=== PATIENT | female | born 1990 | race African-American/Black ===

== ENCOUNTER → 2023-01-02 | Outpatient (CLI) | payer OTHER | LOC: M WUC 11:38 | PROVIDERS: ATTEND Student in an Organized Health Care Education/Training Program | DX: M54.50 Low back pain, unspecified (principal) ==

== ENCOUNTER 2023-01-08 01:09 | Emergency (ER) | payer OTHER, SELFPAY ==
[~2023-01-08] VITALS: Ht 160 cm; Wt 99.2 kg
[2023-01-08 01:09] VITALS: BP 124/62
[2023-01-08] MEDS ORDERED: SERT50TA29 (01:17)
[2023-01-08] MEDS ORDERED: TRAZ-252 (01:17)
== END 2023-01-08 05:08 | disposition left against medical advice (07) ==
LOC: M ED 01:09
DX: R07.9 Chest pain, unspecified (principal); Z53.21 Procedure and treatment not carried out due to patient leaving prior to being seen by health care provider

== ENCOUNTER 2023-01-09 10:14 | Emergency (ER) | payer OTHER, SELFPAY ==
[~2023-01-09] VITALS: Ht 160 cm; Wt 97.7 kg
[~2023-01-09 10:14] MED LIST: SERT50TA29; TRAZ-252
[2023-01-09 10:15] VITALS: BP 118/65
[2023-01-09] MEDS ORDERED: ACETAMINOPHEN 325 MG TAB PO ONE (11:05)
[2023-01-09] MEDS ORDERED: ASPIRIN 81MG CHEW TABLET PO ONE (11:05)
[2023-01-09 11:22] LABS: BASO # 0.1 10^3/uL (0.0-0.2); BASO % 0.8 % (0.0-1.0); EOS # 0.3 10^3/uL (0.0-0.5); EOS % 2.9 % (0.0-3.0); HEMATOCRIT 39.7 % (36.0-47.0); LYMPH # 3.3 10^3/uL (1.5-5.0); LYMPH % 30.8 % (24.0-44.0); MEAN CORPUSCULAR HEMOGLOBIN 26.7 pg (27.0-33.0); MEAN CORPUSCULAR HGB CONC 32.7 g/dl (32.0-36.5); MEAN CORPUSCULAR VOLUME 81.7 fl (80.0-96.0); MONO # 0.7 10^3/uL (0.0-0.8); MONO % 6.9 % (2.0-8.0); NEUTROPHILS # 6.2 10^3/uL (1.5-8.5); NEUTROPHILS % 58.1 % (36.0-66.0); PLATELET COUNT, AUTOMATED 348 10^3/uL (150-450); RED BLOOD COUNT 4.86 10^6/uL (4.00-5.40); WHITE BLOOD COUNT 10.6 10^3/uL (4.0-10.0)
[2023-01-09 11:28] LABS: ERYTHROCYTE SEDIMENTATION RATE 49 mm/hr (0-20)
[2023-01-09 12:11] LABS: ALBUMIN 3.3 G/DL (3.2-5.2); ALKALINE PHOSPHATASE 96 U/L (46-116); ALT/SGPT 28 U/L (7.0-40); AST/SGOT 19 U/L (<34); BILIRUBIN,DIRECT < 0.1 MG/DL (<0.4); BILIRUBIN,TOTAL 0.2 MG/DL (0.3-1.2); BLOOD UREA NITROGEN 23 MG/DL (9-23); CALCIUM LEVEL 8.9 MG/DL (8.5-10.1); CARBON DIOXIDE LEVEL 27 MMOL/L (20-31); CHLORIDE LEVEL 102 MMOL/L (98-107); CK-MB VALUE MASS < 1.0 NG/ML (<3.6); CPK CREATINE PHOSPHOKINASE 62 U/L (34-145); CREATININE FOR GFR 0.76 MG/DL (0.55-1.30); GLOMERULAR FILTRATION RATE > 60.0 (>60); GLUCOSE, FASTING 92 MG/DL (60-100); LIPASE 35 U/L (12-53); MB/CK RELATIVE INDEX 1.61 (< OR =4); POTASSIUM SERUM 4.7 MMOL/L (3.5-5.1); SODIUM LEVEL 137 MMOL/L (136-145); TOTAL PROTEIN 6.8 G/DL (5.7-8.2)
== END 2023-01-09 12:41 | disposition home or self-care (01) ==
LOC: M ED 10:14
DX: R07.9 Chest pain, unspecified (principal); Z79.899 Other long term (current) drug therapy